=== PATIENT | male | born 1995 | race American Indian/Alaskan Native ===

== ENCOUNTER 2024-08-18 19:06 | Emergency (ER) | payer BC, OTHER ==
[~2024-08-18] VITALS: Ht 177.8 cm; Wt 72.6 kg
[2024-08-18 19:13] VITALS: BP_SYST 104; PULSE 98; RESP 20; TEMP 98; O2SAT 98
== END 2024-08-18 19:20 | disposition left against medical advice (07) ==
LOC: SED 19:06
DX: T50.991A Poisoning by other drugs, medicaments and biological substances, accidental (unintentional), initial encounter (principal); Z53.21 Procedure and treatment not carried out due to patient leaving prior to being seen by health care provider; Y92.89 Other specified places as the place of occurrence of the external cause